=== PATIENT | male | born 1985 | race Two or more races ===

== ENCOUNTER 2017-10-23 17:37 | Emergency (ER) | payer OTHER ==
[2017-10-23 17:48] VITALS: BP 150/109; PULSE 90; RESP 16; TEMP 98.4; O2SAT 95
--- NOTE | 2017-10-23 18:19 | EDPHY ---
H & P Stated Complaint: right shoulder and low rib pain since Sunday . Jane HPI/ROS: CHIEF COMPLAINT: Right chest pain HISTORY OF PRESENT ILLNESS: This is a healthy 32-year-old male who presents with a 4 days of cough, now improving, and right-sided pleuritic chest pain. Yesterday he also developed some right-sided shoulder pain. He feels mildly short of breath. He has not had fever. No calf pain or swelling. No recent travel. He has no family history of VTE. He does not use tobacco products. REVIEW OF SYSTEMS: A ten point review of systems was performed and is negative with the exception of the items mentioned in the HPI. Past medical history: Negative Past surgical history: Negative Family history: Negative for VTE. Social history: Does not use tobacco. He drinks alcohol on occasion. He works in [employer] for [employer]. General Appearance: Alert. Vital signs reviewed. Blood pressure 150/109 at triage. All other vital signs normal. Eyes: Pupils equal and round, no conjunctival injection, no discharge. Anicteric. ENT, Mouth: Mucous membranes are moist, no oropharyngeal erythema or edema. Neck: No lymphadenopathy, supple. Respiratory: Lungs are clear to auscultation; no wheezes, rales, or rhonchi. Cardiovascular: Regular rate and rhythm; no murmur, rub, or gallop. Gastrointestinal: Abdomen is soft and nontender, no masses or organomegaly, bowel sounds normal. Skin: Warm and dry, no rashes on exposed skin, normal color. Back: Nontender to palpation over the thoracolumbar spine. No CVAT. Extremities: No lower extremity edema, no calf tenderness or swelling. Neurological: Alert and oriented. Moving all four extremities easily and equally. Psychiatric: Normal affect. - Personal History Current Tetanus/Diphtheria Vaccine: No Current Tetanus Diphtheria and Acellular Pertussis (TDAP): No - Medical/Surgical History Hx Asthma: No Hx Chronic Respiratory Disease: No Hx Diabetes: No Hx Cardiac Disease: No Hx Renal Disease: No Hx Cirrhosis: No Hx Alcoholism: No Hx HIV/AIDS: No Hx Splenectomy or Spleen Trauma: No Other PMH: SKULL SURGERY WHEN INFANT - Social History Smoking Status: Former smoker Constitutional: Initial Vital Signs Temperature (C) 36.9 C 10/23/17 17:45 Heart Rate 90 10/23/17 17:45 Respiratory Rate 16 10/23/17 17:45 Blood Pressure 150/109 H 10/23/17 17:45 O2 Sat (%) 95 10/23/17 17:45 O2 Delivery Mode Room Air Allergies/Adverse Reactions: No Known Allergies Allergy (Verified 10/23/17 17:48) Home Medications: Medication Instructions Recorded Miscellaneous Medical Supply [NO 12/21/12 HOME MEDS] AZITHROMYCIN [Z-PACK] 250 mg PO DAILY #6 tab 10/23/17 Medical Decision Making ED Course/Re-evaluation: CXR shows miguel bilateral lower lobe infiltrates (vs atalectasis). I have reviewed the films and the radiology report. Patient is not febrile, hypoxic, toxic appearing. I feel that he can safely treat a pneumonia at home. He is prescribed azithromycin for CAP. I think PE is unlikely--PERC negative. I do not suspect cardiac etiology. He is aware of his elevated blood pressure and is advised to have this checked by PCP. PCP referral given. Differential Diagnosis: I considered a ddx that includes but is not limited to influenza, bronchitis, URI, pneumonia, PE, ACS. Departure - Departure Disposition: Home, Routine, Self-Care Clinical Impression: Pneumonia Qualifiers: Pneumonia type: due to unspecified organism Laterality: bilateral Lung location : lower lobe of lung Qualified Code(s): J18.9 - Pneumonia, unspecified organism Condition: Good Instructions: Community Acquired Pneumonia (ED) Additional Instructions: Try to get lots of rest, eat well, drink plenty of fluids. Take the antibiotics as prescribed for the next five days. I am referring you to Dr. Webber for primary care. Referrals: Sachin Webber DO [Medical Doctor] - As per Instructions Stand Alone Forms: Work Excuse Prescriptions: AZITHROMYCIN [Z-PACK] 250 mg PO DAILY #6 tab
== END 2017-10-23 19:05 | disposition home or self-care (01) ==
LOC: CED 17:37
DX: J18.9 Pneumonia, unspecified organism (principal); Z87.891 Personal history of nicotine dependence
CPT/HCPCS: 71020-PO